=== PATIENT | female | born 1990 | race Caucasian/White ===

== ENCOUNTER 2023-09-29 06:45 | Inpatient (IN) ==
[2023-09-29] MEDS ORDERED: OXYTOCIN 30 UNITS/NSS 30 UNITS/500 ML BAG IV PRN ×3 (07:15→13:19)
[2023-09-29] MEDS ORDERED: LIDOCAINE 1% LOCAL 20 ML VIAL INFIL PRN (07:15)
--- NOTE | 2023-09-29 07:18 | History & Physical Report ---
Date of Service September 29, 2023 Assessment & Plan (1) Normal labor: Plan admit. fetus category one. desires epidural. arom /pit as indicated. anticipate . History of Present Illness Chief Complaint: contractions Primary Care Provider: Jeremiah Marc DO Patient is a 32yof with iup at 38 5/7 weeks who presents to labor and delivery with contractions and bloody show. +fm. no lof. and Delivery Plans Current every day vaping -Working towards cessation FOB - FHx cardiac defects. - ECHO 22-24 weeks-Normal LGSIL with High Risk HPV *MONICA I on colposcopy * Repeat PAP w/ HPV at 6w visit OB Labs: Blood Type O Positive 03/02/23 Antibody Screen NEGATIVE 03/02/23 Hemoglobin 12.7 g/dl (12.0-16.0) 07/28/23 Hematocrit 36.8 % (37.0-47.0) L 07/28/23 Mean Corpuscular Volume 92.2 fL (80.0-100.0) 07/28/23 Platelet Count 210 K/uL (130-400) 07/28/23 Rubella IgG Antibody Immune (Immune) 03/02/23 Rapid Plasma Reagin Nonreactive (Nonreactive) 03/02/23 Hepatitis B Surface Antigen. NON-REACTIVE (NON-REACTIVE) 03/02/23 Hepatitis C Antibody (EIA) NON-REACTIVE (NON-REACTIVE) 03/02/23 HIV (1&2) Ag and Ab Confirmation NON-REACTIVE (NON-REACTIVE) 03/02/23 Glucose 1 Hour 50 gm Load 121 mg/dl (70-130) 07/14/23 Maternal Serum Alpha Fetoprotein 28.2 ng/mL 04/29/23 OB Optional Labs: Chlamydia trachomatis RNA Not Detected (NotDetected) 03/02/23 Neisseria gonorrhoeae RNA Not Detected (NotDetected) 03/02/23 Alpha Fetoprotein Triple Screen SEE NOTE 04/29/23 Labs Reviewed: cfdna-low risk--mln gbs neg afp neg Allergies Allergy/AdvReac Type Severity Reaction Status Date / Time chlorpromazine Allergy Intermediate Hives Verified 09/15/23 16:22 [From Thorazine] Home Medications Medication Instructions Recorded Confirmed Type omeprazole 20 mg capsule,delayed 20 mg PO QAM 02/12/23 09/29/23 History release sertraline 100 mg tablet (Zoloft) 200 mg PO DAILY 04/01/23 09/29/23 History clobetasol 0.05 % scalp solution 1 applic topical DIRECTED 07/28/23 09/29/23 History lamotrigine 25 mg tablet 25 mg PO HS 07/28/23 09/29/23 History vit no.95-ferrous 2 tab PO DAILY 07/28/23 09/29/23 History fumarate 28 mg-folic acid 800 mcg tablet () hydrocortisone 2.5 % topical cream 1 applic AK DAILY PRN hemorrhoids 08/20/23 09/29/23 Rx with perineal applicator #30 grams (Proctosol HC) Patient History Medical History (Updated 09/29/23 @ 07:21 by Juanita Huffman MD, FACOG) PTSD (post-traumatic stress disorder) Anxiety and depression Fibromyalgia Human papilloma virus Psoriatic arthritis Psoriasis Surgical History (Updated 09/29/23 @ 07:08 by Cathie Haile RN) [place] teeth extracted History of colposcopy Status post skin graft S/P dilatation and curettage Family History (Updated 02/27/23 @ 15:12 by Shirley Mac) Grandmother (Maternal) Breast cancer Colorectal cancer Aunt Ovarian cancer Father Myocardial infarction, Onset Age: 50 Mother Pre-diabetes Social History Smoking Status: Unknown if ever smoked Tobacco Type: E-cigarettes / Vaping Do You Dip or Chew Tobacco: No; Preferred Language: [place] marital status: Single marital status details: Donna Feliz (31) [phone] Current Living Situation: Parent and Significant Other Current Living Situation Comment: lives with mother, Fob, dog, cat-patient not changing litter current occupational status: unemployed Feels Safe at Home: Yes Physical Exam Constitutional: WD/WN, vitals as above Gastrointestinal (Abdomen): soft, gravid, nt Psychiatric: A+Ox3, euthymic affect Genitourinary: cx--4/100/-2, bulging bag toco--q3-5min efm--130s with mod variability, accels present , no decels Results & Data Vital Signs (Past 12 Hours) Vital Signs Pulse BP 09/29/23 07:02 99 H 137/82 Coding Level of Care Code None Diagnoses Normal labor O80; Z37.9
[2023-09-29] MEDS ORDERED: fentaNYL citrate PF 100 MCG/2 ML VIAL ONE (07:25)
[2023-09-29] MEDS ORDERED: SODIUM CHLORIDE 0.9% PF INJ 10 ML VIAL ONE (07:26)
[2023-09-29] MEDS ORDERED: ePHEDrine sulfate 50 MG/ML AMP ONE (07:26)
[2023-09-29] MEDS ORDERED: LIDOCAINE 2%/EPINEPHRINE 1:200,000 20 ML PF ONE (07:26)
[2023-09-29] MEDS ORDERED: BUPIVACAINE 0.25% PF 30 ML VIAL ONE (07:26)
[2023-09-29] MEDS ORDERED: fentANYL 2 MCG/ML BUPIVacaine 0.125%-NSS 100ML BAG ONE (07:26)
[2023-09-29] MEDS: LACTATED RINGER'S 1,000 ML IV PRN ×2 (07:30→08:21)
[2023-09-29 07:51] LABS: Hematocrit (blood only) 34.1 % (37.0-47.0); Hemoglobin 11.4 g/dl (12.0-16.0); Mean Corpuscular Hemoglobin 29.8 pg (25.0-34.0); Mean Corpuscular Hgb Conc 33.4 g/dL (32.0-36.0); Mean Corpuscular Volume 89.3 fL (80.0-100.0); Mean Platelet Volume 12.1 fL (9.4-12.4); Platelet Count 189 K/uL (130-400); RDW Coefficient of Variation 13.2 % (11.5-14.5); RDW Standard Deviation 40.6 fL (36.4-46.3); Red Blood Count 3.82 M/uL (4.20-5.40); White Blood Count 9.69 K/ul (4.8-10.8)
--- NOTE | 2023-09-29 07:57 | Anesthesiology Consultation ---
Date of Service September 29, 2023 Assessment & Plan (1) Encounter for pre-operative examination: Chart Review Chart Review: Acceptable Risk for Labor Epidural History Height/Weight Height: 5 ft 5 in Weight: 97.069 kg Allergies Allergy/AdvReac Type Severity Reaction Status Date / Time chlorpromazine Allergy Intermediate Hives Verified 09/15/23 16:22 [From Thorazine] Medications Home Medications Medication Instructions Recorded Confirmed Last Taken omeprazole 20 mg capsule,delayed 20 mg PO QAM 02/12/23 09/29/23 09/28/23 release sertraline 100 mg tablet (Zoloft) 200 mg PO DAILY 04/01/23 09/29/23 09/28/23 clobetasol 0.05 % scalp solution 1 applic topical DIRECTED 07/28/23 09/29/23 Unknown lamotrigine 25 mg tablet 25 mg PO HS 07/28/23 09/29/23 09/28/23 vit no.95-ferrous 2 tab PO DAILY 07/28/23 09/29/23 07/28/23 fumarate 28 mg-folic acid 800 mcg tablet () hydrocortisone 2.5 % topical cream 1 applic HI DAILY PRN hemorrhoids 08/20/23 09/29/23 Unknown with perineal applicator #30 grams (Proctosol HC) Past Medical History Medical History PTSD (post-traumatic stress disorder) Anxiety and depression Fibromyalgia Human papilloma virus Psoriatic arthritis Psoriasis Past Family History Family History Grandmother (Maternal) Breast cancer Colorectal cancer Aunt Ovarian cancer Father Myocardial infarction, Onset Age: 50 Mother Pre-diabetes Past Surgical History Surgical History [place] teeth extracted History of colposcopy Status post skin graft S/P dilatation and curettage Social History Smoking Status: Current every day smoker Do You Dip or Chew Tobacco: No Hx Alcohol Use: No Hx Substance Use: Yes substance use type: marijuana Last Used Substance Other:: 09/28/22 Physical Exam Vital Signs Last Vital Signs Temp 36.8 C 09/29/23 07:12 Pulse 99 H 09/29/23 07:02 Resp 20 09/29/23 07:12 BP 137/82 09/29/23 07:02 Testing Laboratory Results 09/29/23 07:24
[2023-09-29] MEDS ORDERED: fentaNYL citrate PF 100 MCG/2 ML VIAL EPI PRN (08:50)
[2023-09-29] MEDS ORDERED: LIDOCAINE 2%/EPINEPHRINE 1:200,000 20 ML PF EPI STA (08:50)
[2023-09-29] MEDS ORDERED: LIDOCAINE 2% MPF LOCAL 5 ML VIAL EPI PRN (08:50)
[2023-09-29] MEDS ORDERED: SODIUM CHLORIDE 0.9% PF INJ 10 ML VIAL EPI STA (08:50)
[2023-09-29] MEDS ORDERED: ONDANSETRON INJ 2 MG/ML 2 ML VIAL IV PRN (08:50)
[2023-09-29] MEDS ORDERED: fentaNYL citrate PF 100 MCG/2 ML VIAL EPI STA (08:50)
[2023-09-29] MEDS ORDERED: ROPIVACAINE 0.5% PF 5 MG/ML 20 ML VIAL EPI PRN (08:50)
[2023-09-29] MEDS ORDERED: BUPIVACAINE 0.25% PF 30 ML VIAL EPI STA (08:50)
[2023-09-29] MEDS ORDERED: BUPIVACAINE 0.25% PF 30 ML VIAL EPI PRN (08:50)
[2023-09-29] MEDS ORDERED: NALOXONE HCL 0.4 MG/1 ML VIAL/CARP IV PRN (08:50)
[2023-09-29] MEDS ORDERED: SODIUM CHLORIDE 0.9% PF INJ 10 ML VIAL EPI PRN (08:50)
[2023-09-29] MEDS ORDERED: fentANYL 2 MCG/ML BUPIVacaine 0.125%-NSS 100ML BAG EPI PRN (08:50)
[2023-09-29] MEDS ORDERED: NALOXONE HCL 1 MG in SODIUM CHLORIDE 0.9% 1,000 ML IV PRN (08:50)
[2023-09-29] MEDS ORDERED: ePHEDrine sulfate 50 MG/ML AMP IV PRN (08:50)
--- NOTE | 2023-09-29 09:00 | Labor Progress Brief Note ---
Date of Service September 29, 2023 Subjective pt comfortable with epidural. Assessment & Plan (1) Normal labor: Plan will see how arom helps labor pattern. c/w pit. fhts categ 1. pt aware i am taking over care. Admission and Anticipated Discharge Date Admission Date: September 29, 2023 Physical Exam Constitutional: WD/WN, vitals as above Genitourinary: Manual OB Exam: + cervical dilation 4 cm, + cervical effacement 90%, + station -2 and + amniotic fluid (arom) clear Results & Data Vital Signs (Past 12 Hours) Vital Signs Temp Pulse Resp BP Pulse Ox 09/29/23 08:52 116 H 09/29/23 08:52 118/76 09/29/23 08:51 97 09/29/23 08:51 114 H 09/29/23 08:50 120 H 09/29/23 08:50 119/83 09/29/23 08:48 125 H 09/29/23 08:48 113/65 09/29/23 08:46 96 09/29/23 08:46 146 H 09/29/23 08:46 136 H 09/29/23 08:46 116/71 09/29/23 08:44 100 H 09/29/23 08:44 88/46 L 09/29/23 08:41 96 09/29/23 08:41 86 09/29/23 08:38 93 H 09/29/23 08:38 108/58 L 09/29/23 08:36 96 09/29/23 08:36 97 H 09/29/23 08:36 96 H 09/29/23 08:36 119/69 09/29/23 08:34 93 H 09/29/23 08:34 135/88 09/29/23 08:32 97 H 09/29/23 08:32 128/84 09/29/23 08:31 96 09/29/23 08:31 100 H 09/29/23 08:30 99 H 09/29/23 08:30 135/96 09/29/23 08:26 96 09/29/23 08:26 99 H 09/29/23 08:22 96 H 09/29/23 08:22 133/93 09/29/23 08:21 97 09/29/23 08:21 100 H 09/29/23 08:16 98 09/29/23 08:16 90 09/29/23 08:00 20 09/29/23 08:00 20 09/29/23 07:12 98.2 F 20 09/29/23 07:02 99 H 137/82 Coding Level of Care Code None Diagnoses Normal labor O80; Z37.9
--- NOTE | 2023-09-29 12:23 | Labor Progress Brief Note ---
Date of Service September 29, 2023 Subjective feeling a little pressure Assessment & Plan (1) Normal labor: Plan begin 2nd stage. fhts as expected for station, categ 1. Admission and Anticipated Discharge Date Admission Date: September 29, 2023 Physical Exam Constitutional: WD/WN, vitals as above Genitourinary: Manual OB Exam: + cervical dilation 10 cm, + cervical effacement 100% and + station + 2 OB Exam Monitor Tracing: + external FHT monitor used, + external uterine monitor used (q2), + category I and + normal FHT variability good effort with pushing. Results & Data Vital Signs (Past 12 Hours) Vital Signs Temp Pulse Resp BP Pulse Ox 09/29/23 12:19 86 L 09/29/23 12:19 110 H 09/29/23 12:16 100 09/29/23 12:16 94 H 09/29/23 12:14 100 H 09/29/23 12:14 112/72 09/29/23 12:11 100 09/29/23 12:11 122 H 09/29/23 12:06 100 09/29/23 12:06 90 09/29/23 12:01 99 09/29/23 12:01 90 09/29/23 11:56 100 09/29/23 11:56 82 09/29/23 11:51 100 09/29/23 11:51 88 09/29/23 11:46 100 09/29/23 11:46 90 09/29/23 11:41 100 09/29/23 11:41 88 09/29/23 11:36 100 09/29/23 11:36 77 09/29/23 11:31 100 09/29/23 11:31 94 H 09/29/23 11:26 100 09/29/23 11:26 98 H 09/29/23 11:21 100 09/29/23 11:21 91 H 09/29/23 11:17 84 09/29/23 11:17 130/90 09/29/23 11:16 95 09/29/23 11:16 96 H 09/29/23 11:11 96 09/29/23 11:11 84 09/29/23 11:06 95 09/29/23 11:06 81 09/29/23 11:02 79 09/29/23 11:02 109/56 L 09/29/23 11:01 95 09/29/23 11:01 80 09/29/23 11:00 20 09/29/23 11:00 20 09/29/23 10:56 96 09/29/23 10:56 105 H 09/29/23 10:51 95 09/29/23 10:51 92 H 09/29/23 10:47 90 09/29/23 10:47 133/83 09/29/23 10:46 95 09/29/23 10:46 91 H 09/29/23 10:41 94 09/29/23 10:41 95 H 09/29/23 10:36 95 09/29/23 10:36 101 H 09/29/23 10:32 100 H 09/29/23 10:32 132/90 09/29/23 10:31 97 09/29/23 10:31 100 H 09/29/23 10:26 95 09/29/23 10:26 101 H 09/29/23 10:21 95 09/29/23 10:21 91 H 09/29/23 10:19 93 09/29/23 10:19 104 H 09/29/23 10:17 83 09/29/23 10:17 130/68 09/29/23 10:16 96 09/29/23 10:16 88 09/29/23 10:13 93 09/29/23 10:13 93 H 09/29/23 10:11 96 09/29/23 10:11 94 H 09/29/23 10:06 95 09/29/23 10:06 95 H 09/29/23 10:05 94 09/29/23 10:05 91 H 09/29/23 10:02 86 09/29/23 10:02 123/68 09/29/23 10:01 93 09/29/23 10:01 89 09/29/23 10:00 20 09/29/23 10:00 20 09/29/23 09:56 94 09/29/23 09:56 88 09/29/23 09:51 94 09/29/23 09:51 91 H 09/29/23 09:50 94 09/29/23 09:50 96 H 09/29/23 09:46 94 09/29/23 09:46 96 H 09/29/23 09:46 93 H 09/29/23 09:46 121/67 09/29/23 09:43 94 09/29/23 09:43 99 H 09/29/23 09:41 94 09/29/23 09:41 95 H 09/29/23 09:36 95 09/29/23 09:36 93 H 09/29/23 09:31 95 09/29/23 09:31 94 H 09/29/23 09:30 20 09/29/23 09:30 20 09/29/23 09:29 94 09/29/23 09:29 91 H 09/29/23 09:26 96 09/29/23 09:26 107 H 09/29/23 09:26 118/65 09/29/23 09:22 100 H 09/29/23 09:22 114/62 09/29/23 09:21 96 09/29/23 09:21 101 H 09/29/23 09:16 95 09/29/23 09:16 108 H 09/29/23 09:16 105 H 09/29/23 09:16 112/56 L 09/29/23 09:11 96 09/29/23 09:11 99 H 09/29/23 09:11 107 H 09/29/23 09:11 127/59 L 09/29/23 09:07 106 H 09/29/23 09:07 136/63 09/29/23 09:06 96 09/29/23 09:06 103 H 09/29/23 09:02 113 H 09/29/23 09:02 129/65 09/29/23 09:01 96 09/29/23 09:01 103 H 09/29/23 09:00 16 09/29/23 09:00 16 09/29/23 08:56 95 09/29/23 08:56 110 H 09/29/23 08:56 109/61 09/29/23 08:52 116 H 09/29/23 08:52 118/76 09/29/23 08:51 97 09/29/23 08:51 114 H 09/29/23 08:50 120 H 09/29/23 08:50 119/83 09/29/23 08:48 125 H 09/29/23 08:48 113/65 09/29/23 08:46 96 09/29/23 08:46 146 H 09/29/23 08:46 136 H 09/29/23 08:46 116/71 09/29/23 08:44 100 H 09/29/23 08:44 88/46 L 09/29/23 08:41 96 09/29/23 08:41 86 09/29/23 08:38 93 H 09/29/23 08:38 108/58 L 09/29/23 08:36 96 09/29/23 08:36 97 H 09/29/23 08:36 96 H 09/29/23 08:36 119/69 09/29/23 08:34 93 H 09/29/23 08:34 135/88 09/29/23 08:32 97 H 09/29/23 08:32 128/84 09/29/23 08:31 96 09/29/23 08:31 100 H 09/29/23 08:30 99 H 09/29/23 08:30 135/96 09/29/23 08:26 96 09/29/23 08:26 99 H 09/29/23 08:22 96 H 09/29/23 08:22 133/93 09/29/23 08:21 97 09/29/23 08:21 100 H 09/29/23 08:16 98 09/29/23 08:16 90 09/29/23 08:00 20 09/29/23 08:00 20 09/29/23 07:12 98.2 F 20 09/29/23 07:02 99 H 137/82 Coding Level of Care Code None Diagnoses Normal labor O80; Z37.9
[2023-09-29] MEDS ORDERED: BENZOCAINE 20% SPRY 85 APPLN/85 GM CAN EXT PRN (13:19)
[2023-09-29] MEDS ORDERED: HYDROCORTISONE HC 2.5% CRM 30GM TUBE EXT PRN (13:19)
[2023-09-29] MEDS ORDERED: DIPHTHERIA/TETANUS/PERTUSSIS Vaccine (Tdap, Age 7+yrs) 0.5mL SYR/VL IM ONE (13:19)
[2023-09-29] MEDS ORDERED: bisacodyL 10 MG SUPP PR PRN (13:19)
[2023-09-29] MEDS ORDERED: HYDROCORTISONE ACETATE 25 MG SUPP PR PRN (13:19)
--- NOTE | 2023-09-29 13:20 | Delivery Summary ---
Vaginal Delivery Summary Date of Service September 29, 2023 Vaginal Delivery Summary The patient dilated to complete and pushed to deliver a viable male Apgars 8 and 8 via over 2nd degree perineal laceration. Mouth and nose bulb suctioned at perineum. Loose nuchal x 1 delivered through. Shoulders and body delivered with ease. was vigorous and crying at . Cord clamped at 30 seconds of life and infant to maternal abdomen where the cord was then doubly clamped and cut. Placenta delivered spontaneously and intact, three-vessel cord. Hemostasis achieved with dilute pitocin and uterine massage and drainage of the bladder for approximately 200 cc under sterile conditions. Laceration repaired in routine fashion with 3-0 vicryl. Cervix and sulci intact. EBL 300 cc. Mother and baby stable in recovery. [facility] Vaginal Delivery Charge Delivery Type Details: [facility]
--- NOTE | 2023-09-29 13:28 | Anesthesia Procedure Note ---
Date of Service September 29, 2023 Anesthesia Post Epidural Note Vital Signs Vital Signs: Temp Pulse Resp BP Pulse Ox 36.8 C 114 H 20 137/64 98 09/29/23 07:12 09/29/23 13:27 09/29/23 12:30 09/29/23 13:27 09/29/23 13:11 Notes Mental Status: alert / awake / arousable and participated in evaluation Nausea / Vomiting: adequately controlled Pain: adequately controlled Airway Patency, RR, SpO2: stable & adequate BP & HR: stable & adequate Hydration State: stable & adequate Neuraxial Anesthesia: was administered and sensory block is resolving Anesthetic Complications: no major complications apparent Epidural: Removed without complications and With tip intact
[2023-09-29] MEDS: IBUPROFEN 600 MG TAB PO PRN ×2 (15:18→20:21)
[2023-09-29] MEDS: ACETAMINOPHEN 325 MG TAB PO PRN (17:41)
[2023-09-29] MEDS ORDERED: Nursing to Pharmacy Communication SCH (20:00)
[2023-09-29] MEDS: lamoTRIgine 25 MG TAB PO SCH (20:20)
[2023-09-29] MEDS: SERTRALINE HCL 100 MG TABLET PO SCH (20:21)
[2023-09-29] MEDS: DOCUSATE SODIUM 100 MG CAP PO SCH (20:21)
[2023-09-30] MEDS: IBUPROFEN 600 MG TAB PO PRN ×5 (02:11→20:46)
[2023-09-30] MEDS: PANTOprazole 40 MG TAB PO SCH (07:56)
[2023-09-30] MEDS: DOCUSATE SODIUM 100 MG CAP PO SCH ×2 (07:56→20:45)
[2023-09-30] MEDS: PRENATAL VITAMIN 1 TAB PO SCH (07:56)
--- NOTE | 2023-09-30 08:27 | Obstetrical Progress Note ---
Date of Service September 30, 2023 Assessment & Plan (1) care and examination: Plan stable routine care. rh pos, ri, . support given. will order her omeprazole. Day #:: 1 Subjective Ambulation: ambulating normally Voiding: no voiding problems Diet Tolerance:: regular diet Lochia:: Small Feeding Type:: breast feeding doing well. wants to have her omeprazole ordered. has plan with her providers for pp care. Constitutional: + as per Subjective / HPI Physical Exam Constitutional WD/WN, vitals as above Respiratory normal respiratory effort, lungs clear to auscultation Cardiovascular Rate/Rhythm: regular rate and regular rhythm Gastrointestinal (Abdomen) Inspection/Auscultation: abdomen normal to inspection Percussion/Palpation: abdomen soft Fundus firm 3m down Musculoskeletal nt calves no edema Neurologic grossly normal Psychiatric A+Ox3, euthymic affect Results & Data Vital Signs (Past 12 Hours) Vital Signs Temp Pulse Resp BP BP Pulse Ox O2 Del Method 09/30/23 03:20 98.8 F 98 H 18 133/82 98 Room Air 09/29/23 23:10 98.4 F 98 H 18 119/66 98 Room Air
[2023-09-30] MEDS ORDERED: NON-FORMULARY MEDICATION (Pnv Cmb#95-Ferrous Fumarate-Fa [Prenatal] 28 mg iron- 800 mcg Ta PO SCH (09:00)
[2023-09-30] MEDS ORDERED: SERTRALINE HCL 100 MG TABLET PO SCH (09:00)
[2023-09-30] MEDS ORDERED: CLOBETASOL PROPIONATE 0.05% CREAM 15 GM TUBE EXT SCH (09:15)
[2023-09-30] MEDS: ACETAMINOPHEN 325 MG TAB PO PRN ×3 (10:10→20:46)
[2023-09-30] MEDS ORDERED: bisacodyL 5 MG TABEC PO SCH (20:00)
[2023-09-30] MEDS: SERTRALINE HCL 100 MG TABLET PO SCH (20:46)
[2023-09-30] MEDS: lamoTRIgine 25 MG TAB PO SCH (20:47)
[2023-10-01] MEDS: IBUPROFEN 600 MG TAB PO PRN ×3 (00:47→15:58)
[2023-10-01] MEDS: PRENATAL VITAMIN 1 TAB PO SCH (07:23)
[2023-10-01] MEDS: ACETAMINOPHEN 325 MG TAB PO PRN ×2 (07:24→16:00)
[2023-10-01] MEDS: DOCUSATE SODIUM 100 MG CAP PO SCH (07:24)
[2023-10-01] MEDS: PANTOprazole 40 MG TAB PO SCH (07:26)
--- NOTE | 2023-10-01 07:52 | Obstetrical Progress Note ---
Date of Service <Tabby Mi MD - Last Filed: 10/01/23 07:52> October 01, 2023 Assessment & Plan <Tabby Mi MD - Last Filed: 10/01/23 07:52> (1) Encounter for care after hospital delivery: Patient with the above mentioned history and findings was evaluated at bedside and found awake, alert, oriented in all spheres, afebrile, and in no acute distress. Vital signs showed no fever and blood pressures remained stable. Her blood type is O positive and most recent hemoglobin is adequate at 11.4 g/dL. Given current lightheadedness, will order repeat CBC to r/o anemia as a cause, but state and fatigue can also explain current symptoms. She is GBS negative and rubella immune. Overall, patient is doing well clinically and meeting the desired milestones. Since she is clinically and hemodynamically stable, will discharge today. She was counseled to make an appointment with her OB in 6 weeks for her routine pp evaluation. Discharge instructions discussed. All questions answered. <Raissa Yi MD - Last Filed: 10/01/23 08:21> (1) Encounter for care after hospital delivery: Subjective <Tabby Mi MD - Last Filed: 10/01/23 07:52> Macarena is a 32 y/o female who is now PPD # 2 following at 38 5/7 weeks. Reports feeling well overall this morning. Refers mild abdominal cramping & 6/10 pain more focused in her sites of her stitches and in her epidural site. Indicates analgesics help some with her pain but not by much. Has history of recent removal of thrombosed hemorrhoid, and believes this is also contributing to her pain. Has not received Tylenol in between ibuprofen doses. Also referring occasional episodes of lightheadedness when she's walking. Voiding spontaneously. Has passed flatus but no bowel movements yet. Tolerating meals overnight and able to ambulate some. Some persistent lochia with some improvement this morning. . Constitutional: no fever, no chills or no sweats Denies shortness of breath or difficulty breathing Cardiovascular: no chest pain or no palpitations Breast: no breast pain Genitourinary (female): no dysuria Neurologic: no headache(s) Denies changes in vision Physical Exam <Tabby Mi MD - Last Filed: 10/01/23 07:52> General: Alert. Oriented to person, time, and place. Afebrile. No acute distress. Eyes: pupils equal and reactive to light bilaterally, extraocular movements intact. Cardiac: Regular rate and rhythm, no murmurs/rubs/gallops. Respiratory: Clear to auscultation bilaterally a/p, no wheezes/rales/rhonchi. No increased work of breathing. Symmetrical chest rise. No respiratory distress. Abdomen: Soft, nontender, nondistended. Bowel sounds present. Uterus: Uterine fundus firm, moderately tender, and palpable below umbilicus. Lower Extremities: No deep calf pain. Kaur's negative bilaterally. Psych: Euthymic affect. Mood and affect congruence. Regular speech rate and content. Results & Data <Tabby Mi MD - Last Filed: 10/01/23 07:52> Vital Signs (Past 12 Hours) Vital Signs Temp Pulse Resp BP Pulse Ox O2 Del Method 10/01/23 00:45 36.9 C 98 H 16 119/73 98 Room Air 09/30/23 20:40 36.9 C 92 H 18 110/72 98 Room Air Supervising Physician <Raissa Yi MD - Last Filed: 10/01/23 08:21> Co-Signing Physician Notes Resident Physician Supervision Note: I interviewed and examined the patient. Discussed with Dr. Mi and agree with findings and plan as documented in the note. Any exceptions or clarifications are listed here: PP2 s/p . Occ has episodes of lightheadedness but thinks may be more related to sleep. VSS, exam benign and wnl. Will check cbc but otherwise ok for dc today Documented By: Raissa Yi MD
[2023-10-01 08:18] LABS: Hematocrit (blood only) 27.3 % (37.0-47.0); Hemoglobin 9.2 g/dl (12.0-16.0); Mean Corpuscular Hemoglobin 30.9 pg (25.0-34.0); Mean Corpuscular Hgb Conc 33.7 g/dL (32.0-36.0); Mean Corpuscular Volume 91.6 fL (80.0-100.0); Platelet Count 200 K/uL (130-400); RDW Coefficient of Variation 13.2 % (11.5-14.5); RDW Standard Deviation 41.7 fL (36.4-46.3); Red Blood Count 2.98 M/uL (4.20-5.40); White Blood Count 10.07 K/ul (4.8-10.8)
[2023-10-01] MEDS ORDERED: PANTOprazole 40 MG TAB PO SCH (09:00)
== END 2023-10-01 20:05 | disposition home or self-care (01) | DRG 807 ==
LOC: OPB 06:45 → 4S1 06:56 → 4E2 18:45